=== PATIENT | female | born 1995 | race Caucasian/White ===

== ENCOUNTER 2018-04-26 16:04 | Emergency (ER) | payer OTHER ==
[2018-04-26 16:47] LABS: BASO # 0.1 10^3/uL (0.0-0.2); BASO % 0.5 % (0.0-1.0); EOS # 0.2 10^3/uL (0.0-0.50); EOS % 2.1 % (0.0-3.0); HEMATOCRIT 38.9 % (36.0-47.0); HEMOGLOBIN 12.9 g/dl (12.0-15.5); IMMATURE GRANULOCYTE % 0.3 % (0-3.0); MEAN CORPUSCULAR HEMOGLOBIN 27.9 pg (27.0-33.0); MEAN CORPUSCULAR HGB CONC 33.2 g/dl (32.0-36.5); MEAN CORPUSCULAR VOLUME 84.2 fl (80.0-96.0); MONO # 0.7 10^3/uL (0.0-0.8); MONO % 5.7 % (0.0-5.0); NEUTROPHILS # 7.5 10^3/uL (1.8-7.7); NEUTROPHILS % 65.4 % (36.0-66.0); PLATELET COUNT, AUTOMATED 364 10^3/uL (150-450); RED BLOOD COUNT 4.62 10^6/uL (4.00-5.40); RED CELL DISTRIBUTION WIDTH 12.7 % (11.5-14.5); WHITE BLOOD COUNT 11.5 10^3/uL (4.0-10.0)
[2018-04-26 17:12] LABS: HCG, SERUM QUANTITATIVE 7 MIU/ML
[2018-04-26 17:24] LABS: AMORPHOUS SEDIMENT RFX SMALL (NEGATIVE); KETONE, URINE AUTO RFX NEGATIVE (NEGATIVE); MUCUS, URINE RFX SMALL (NEGATIVE); NITRITE, URINE AUTO RFX NEGATIVE (NEGATIVE); RBC, URINE AUTO RFX TNTC /HPF (0-3); SPECIFIC GRAVITY UR AUTO RFX 1.016 (1.002-1.035); SQUAM EPITHELIAL CELL UR AURFX 1 /HPF (0-6); WBC, URINE AUTO RFX 7 /HPF (0-3)
[2018-04-26 17:26] LABS: LEUKOCYTE ESTERASE UR AUTO RFX TRACE (NEGATIVE)
== END 2018-04-26 19:40 | disposition home or self-care (01) ==
LOC: M ED 16:04
DX: O20.9 Hemorrhage in early pregnancy, unspecified (principal)

== ENCOUNTER 2018-04-27 04:16 | Emergency (ER) | payer OTHER ==
[2018-04-27] MEDS: NS 1,000 ML IV (05:45)
[2018-04-27 06:06] LABS: BASO # 0.1 10^3/uL (0.0-0.2); BASO % 0.8 % (0.0-1.0); EOS # 0.2 10^3/uL (0.0-0.50); EOS % 2.6 % (0.0-3.0); HEMATOCRIT 40.9 % (36.0-47.0); HEMOGLOBIN 13.5 g/dl (12.0-15.5); IMMATURE GRANULOCYTE % 0.3 % (0-3.0); LYMPH % 37.4 % (24.0-44.0); MEAN CORPUSCULAR HEMOGLOBIN 27.6 pg (27.0-33.0); MEAN CORPUSCULAR VOLUME 83.5 fl (80.0-96.0); MONO # 0.5 10^3/uL (0.0-0.8); MONO % 6.2 % (0.0-5.0); NEUTROPHILS # 4.2 10^3/uL (1.8-7.7); NEUTROPHILS % 52.7 % (36.0-66.0); PLATELET COUNT, AUTOMATED 366 10^3/uL (150-450); RED CELL DISTRIBUTION WIDTH 12.7 % (11.5-14.5)
[2018-04-27 06:27] LABS: HCG, SERUM QUANTITATIVE 5 MIU/ML
[2018-04-27 07:05] LABS: ALBUMIN 3.8 GM/DL (3.2-5.2); ALBUMIN/GLOBULIN RATIO 0.97 (1.00-1.93); ALKALINE PHOSPHATASE 82 U/L (45-117); ALT/SGPT 21 U/L (12-78); ANION GAP 7 MEQ/L (8-16); AST/SGOT 23 U/L (7-37); BILIRUBIN,DIRECT 0.2 MG/DL (0.0-0.2); BILIRUBIN,TOTAL 0.8 MG/DL (0.2-1.0); BLOOD UREA NITROGEN 11 MG/DL (7-18); CALCIUM LEVEL 8.7 MG/DL (8.5-10.1); CARBON DIOXIDE LEVEL 26 MEQ/L (21-32); CHLORIDE LEVEL 105 MEQ/L (98-107); CREATININE FOR GFR 0.59 MG/DL (0.55-1.30); GLOMERULAR FILTRATION RATE > 60.0 (>60); GLUCOSE, FASTING 83 MG/DL (70-100); LIPASE 49 U/L (73-393); POTASSIUM SERUM 4.3 MEQ/L (3.5-5.1); SODIUM LEVEL 138 MEQ/L (136-145); TOTAL PROTEIN 7.7 GM/DL (6.4-8.2)
== END 2018-04-27 06:50 | disposition home or self-care (01) ==
LOC: M ED 04:16
DX: Z32.01 Encounter for pregnancy test, result positive (principal); O20.9 Hemorrhage in early pregnancy, unspecified; Z3A.00 Weeks of gestation of pregnancy not specified
CPT/HCPCS: 83690

== ENCOUNTER 2018-05-17 15:00 | Emergency (ER) | payer OTHER ==
[2018-05-17 15:41] LABS: APPEARANCE, URINE CLOUDY (CLEAR); BACTERIA, URINE AUTO NEGATIVE (NEGATIVE); BILIRUBIN, URINE AUTO NEGATIVE (NEGATIVE); BLOOD, URINE BLOOD NEGATIVE (NEGATIVE); COLOR, URINE YELLOW (YELLOW); GLUCOSE, URINE (UA) AUTO NEGATIVE (NEGATIVE); KETONE, URINE AUTO NEGATIVE (NEGATIVE); LEUKOCYTE ESTERASE, URINE AUTO 1+ (NEGATIVE); MUCUS, URINE SMALL (NEGATIVE); NITRITE, URINE AUTO NEGATIVE (NEGATIVE); PROTEIN, URINE AUTO NEGATIVE (NEGATIVE); RBC, URINE AUTO 4 /HPF (0-3); SPECIFIC GRAVITY URINE AUTO 1.029 (1.002-1.035); SQUAMOUS EPITHELIAL CELL UR AU 9 /HPF (0-6); UROBILINOGEN, URINE AUTO 0.2 mg/dL (0.0-2.0); WBC, URINE AUTO 1 /HPF (0-3)
[2018-05-17] MEDS: NS 1,000 ML IV (15:41)
[2018-05-17 15:55] LABS: BASO # 0.1 10^3/uL (0.0-0.2); BASO % 0.7 % (0.0-1.0); EOS # 0.2 10^3/uL (0.0-0.50); EOS % 2.3 % (0.0-3.0); HEMOGLOBIN 12.2 g/dl (12.0-15.5); IMMATURE GRANULOCYTE % 0.2 % (0-3.0); LYMPH # 2.7 10^3/uL (1.5-6.5); LYMPH % 30.3 % (24.0-44.0); MEAN CORPUSCULAR HEMOGLOBIN 27.4 pg (27.0-33.0); MONO # 0.5 10^3/uL (0.0-0.8); MONO % 5.6 % (0.0-5.0); NEUTROPHILS # 5.3 10^3/uL (1.8-7.7); NEUTROPHILS % 60.9 % (36.0-66.0); PLATELET COUNT, AUTOMATED 357 10^3/uL (150-450); RED BLOOD COUNT 4.46 10^6/uL (4.00-5.40); RED CELL DISTRIBUTION WIDTH 12.7 % (11.5-14.5); WHITE BLOOD COUNT 8.8 10^3/uL (4.0-10.0)
[2018-05-17 16:20] LABS: ALBUMIN/GLOBULIN RATIO 1.03 (1.00-1.93); ALKALINE PHOSPHATASE 94 U/L (45-117); ALT/SGPT 19 U/L (12-78); ANION GAP 8 MEQ/L (8-16); AST/SGOT 13 U/L (7-37); BILIRUBIN,DIRECT 0.1 MG/DL (0.0-0.2); BILIRUBIN,TOTAL 0.4 MG/DL (0.2-1.0); BLOOD UREA NITROGEN 14 MG/DL (7-18); CALCIUM LEVEL 8.9 MG/DL (8.5-10.1); CARBON DIOXIDE LEVEL 27 MEQ/L (21-32); CHLORIDE LEVEL 103 MEQ/L (98-107); CREATININE FOR GFR 0.75 MG/DL (0.55-1.30); GLOMERULAR FILTRATION RATE > 60.0 (>60); GLUCOSE, FASTING 90 MG/DL (70-100); LIPASE 68 U/L (73-393); SODIUM LEVEL 138 MEQ/L (136-145); TOTAL PROTEIN 7.9 GM/DL (6.4-8.2)
[2018-05-17 16:24] LABS: CONTROL LINE HCG INT CTR LINE PRESENT; HCG, SERUM QUALITATIVE NEGATIVE (NEGATIVE)
== END 2018-05-17 17:00 | disposition home or self-care (01) ==
LOC: M ED 15:00
DX: R11.0 Nausea (principal); R19.7 Diarrhea, unspecified; F17.210 Nicotine dependence, cigarettes, uncomplicated
CPT/HCPCS: 83690

== ENCOUNTER 2020-02-06 02:30 | Emergency (ER) | payer OTHER ==
[~2020-02-06] VITALS: Ht 167.6 cm; Wt 128.7 kg
[~2020-02-06 02:30] MED LIST: MOTR200T44 PO; PRENTAB55 PO; ZOFR4TAB14 PO
[2020-02-06] MEDS ORDERED: VITA50TA43 PO (02:46)
[2020-02-06] MEDS ORDERED: MULTTAB20 PO (02:46)
[2020-02-06] MEDS ORDERED: UNIS25TA3 PO (02:46)
[2020-02-06] MEDS ORDERED: ACET-683 PO (02:46)
[2020-02-06] MEDS ORDERED: KETOROLAC 60MG 2ML VIAL IM ONE (05:15)
[2020-02-06 05:52] LABS: BASO # 0.1 10^3/uL (0.0-0.2); BASO % 0.5 % (0.0-1.0); EOS # 0.2 10^3/uL (0.0-0.5); HEMOGLOBIN 11.1 g/dl (12.0-15.5); LYMPH # 2.6 10^3/uL (1.5-5.0); LYMPH % 24.3 % (24.0-44.0); MEAN CORPUSCULAR HEMOGLOBIN 28.3 pg (27.0-33.0); MEAN CORPUSCULAR HGB CONC 33.6 g/dl (32.0-36.5); MEAN CORPUSCULAR VOLUME 84.2 fl (80.0-96.0); MONO # 0.7 10^3/uL (0.0-0.8); MONO % 6.2 % (0.0-5.0); NEUTROPHILS % 66.1 % (36.0-66.0); PLATELET COUNT, AUTOMATED 300 10^3/uL (150-450); RED BLOOD COUNT 3.92 10^6/uL (4.00-5.40); WHITE BLOOD COUNT 10.6 10^3/uL (4.0-10.0)
[2020-02-06 06:11] LABS: ALBUMIN 2.9 GM/DL (3.2-5.2); ALT/SGPT 21 U/L (12-78); BILIRUBIN,DIRECT 0.1 MG/DL (0.0-0.2); BILIRUBIN,TOTAL 0.3 MG/DL (0.2-1.0); BLOOD UREA NITROGEN 6 MG/DL (7-18); CALCIUM LEVEL 9.3 MG/DL (8.5-10.1); CARBON DIOXIDE LEVEL 26 MEQ/L (21-32); CHLORIDE LEVEL 106 MEQ/L (98-107); CREATININE FOR GFR 0.46 MG/DL (0.55-1.30); GLOMERULAR FILTRATION RATE > 60.0 (>60); GLUCOSE, FASTING 92 MG/DL (70-100); POTASSIUM SERUM 4.1 MEQ/L (3.5-5.1); SODIUM LEVEL 137 MEQ/L (136-145); TOTAL PROTEIN 6.7 GM/DL (6.4-8.2)
[2020-02-06 06:17] LABS: ERYTHROCYTE SEDIMENTATION RATE 23 mm/hr (0-20)
[2020-02-06 07:00] VITALS: BP 125/74
== END 2020-02-06 07:02 | disposition home or self-care (01) ==
LOC: M ED 02:30
DX: O99.352 Diseases of the nervous system complicating pregnancy, second trimester (principal); G43.909 Migraine, unspecified, not intractable, without status migrainosus; Z3A.16 16 weeks gestation of pregnancy; Z79.899 Other long term (current) drug therapy; Z87.891 Personal history of nicotine dependence
CPT/HCPCS: 80048; 80076; 85025; 85652; 96372; 99283; J1885

== ENCOUNTER 2020-07-12 07:14 | Inpatient (IN) | payer OTHER ==
[~2020-07-12] VITALS: Ht 167.6 cm; Wt 147.9 kg
[2020-07-12] VITALS (42 sets, daily range): BP systolic 95–145; BP diastolic 55–94
[~2020-07-12 07:14] MED LIST changes: +ACET-683 PO; +MULTTAB20 PO; +UNIS25TA3 PO; +VITA50TA43 PO
--- OUTSIDE RECORDS SUMMARY | 2020-07-12 07:18 | CCD ---
Author Author [facility] Organization [facility] Address Unknown Phone Unavailable Care Team Providers Care Pl Sql Developer Name Role Phone ALIASES , DEFAULT / GENERIC / UNKNOWN PROVIDER * Unavailable Unavailable ALIASES , DEFAULT / GENERIC / UNKNOWN PROVIDER * Unavailable Unavailable ALIASES , DEFAULT / GENERIC / UNKNOWN PROVIDER * Unavailable Unavailable ALIASES , DEFAULT / GENERIC / UNKNOWN PROVIDER * Unavailable Unavailable ALIASES , DEFAULT / GENERIC / UNKNOWN PROVIDER * Unavailable Unavailable ALIASES , DEFAULT / GENERIC / UNKNOWN PROVIDER * Unavailable Unavailable ALIASES , DEFAULT / GENERIC / UNKNOWN PROVIDER * Unavailable Unavailable ALIASES , DEFAULT / GENERIC / UNKNOWN PROVIDER * Unavailable Unavailable ALIASES , DEFAULT / GENERIC / UNKNOWN PROVIDER * Unavailable Unavailable ALIASES , DEFAULT / GENERIC / UNKNOWN PROVIDER * Unavailable Unavailable ALIASES , DEFAULT / GENERIC / UNKNOWN PROVIDER * Unavailable Unavailable ALIASES , DEFAULT / GENERIC / UNKNOWN PROVIDER * Unavailable Unavailable ALIASES , DEFAULT / GENERIC / UNKNOWN PROVIDER * Unavailable Unavailable ALIASES , DEFAULT / GENERIC / UNKNOWN PROVIDER * Unavailable Unavailable ALIASES , DEFAULT / GENERIC / UNKNOWN PROVIDER * Unavailable Unavailable ALIASES , DEFAULT / GENERIC / UNKNOWN PROVIDER * Unavailable Unavailable ALIASES , DEFAULT / GENERIC / UNKNOWN PROVIDER * Unavailable Unavailable ALIASES , DEFAULT / GENERIC / UNKNOWN PROVIDER * Unavailable Unavailable ALIASES , DEFAULT / GENERIC / UNKNOWN PROVIDER * Unavailable Unavailable ALIASES , DEFAULT / GENERIC / UNKNOWN PROVIDER * Unavailable Unavailable ALIASES , DEFAULT / GENERIC / UNKNOWN PROVIDER * Unavailable Unavailable ALIASES , DEFAULT / GENERIC / UNKNOWN PROVIDER * Unavailable Unavailable ALIASES , DEFAULT / GENERIC / UNKNOWN PROVIDER * Unavailable Unavailable ALIASES , DEFAULT / GENERIC / UNKNOWN PROVIDER * Unavailable Unavailable ALIASES , DEFAULT / GENERIC / UNKNOWN PROVIDER * Unavailable Unavailable ALIASES , DEFAULT / GENERIC / UNKNOWN PROVIDER * Unavailable Unavailable ALIASES , DEFAULT / GENERIC / UNKNOWN PROVIDER * Unavailable Unavailable ALIASES , DEFAULT / GENERIC / UNKNOWN PROVIDER * Unavailable Unavailable ALIASES , DEFAULT / GENERIC / UNKNOWN PROVIDER * Unavailable Unavailable ALIASES , DEFAULT / GENERIC / UNKNOWN PROVIDER * Unavailable Unavailable ALIASES , DEFAULT / GENERIC / UNKNOWN PROVIDER * Unavailable Unavailable ALIASES , DEFAULT / GENERIC / UNKNOWN PROVIDER * Unavailable Unavailable ALIASES , DEFAULT / GENERIC / UNKNOWN PROVIDER * Unavailable Unavailable ALIASES , DEFAULT / GENERIC / UNKNOWN PROVIDER * Unavailable Unavailable ALIASES , DEFAULT / GENERIC / UNKNOWN PROVIDER * Unavailable Unavailable ALIASES , DEFAULT / GENERIC / UNKNOWN PROVIDER * Unavailable Unavailable ALIASES , DEFAULT / GENERIC / UNKNOWN PROVIDER * Unavailable Unavailable ALIASES , DEFAULT / GENERIC / UNKNOWN PROVIDER * Unavailable Unavailable ALIASES , DEFAULT / GENERIC / UNKNOWN PROVIDER * Unavailable Unavailable ALIASES , DEFAULT / GENERIC / UNKNOWN PROVIDER * Unavailable Unavailable ALIASES , DEFAULT / GENERIC / UNKNOWN PROVIDER * Unavailable Unavailable ALIASES , DEFAULT / GENERIC / UNKNOWN PROVIDER * Unavailable Unavailable ALIASES , DEFAULT / GENERIC / UNKNOWN PROVIDER * Unavailable Unavailable ALIASES , DEFAULT / GENERIC / UNKNOWN PROVIDER * Unavailable Unavailable ALIASES , DEFAULT / GENERIC / UNKNOWN PROVIDER * Unavailable Unavailable ALIASES , DEFAULT / GENERIC / UNKNOWN PROVIDER * Unavailable Unavailable ALIASES , DEFAULT / GENERIC / UNKNOWN PROVIDER * Unavailable Unavailable LATIA JOY Unavailable Unavailable NOSOVITCH JR, Ferny DAO MD Unavailable Unavailable NOSOVITCH JR, Ferny DAO MD Unavailable Unavailable NOSOVITCH JR, Ferny DAO MD Unavailable Unavailable NOSOVITCH JR, Ferny DAO MD Unavailable Unavailable NOSOVITCH JR, Ferny DAO MD Unavailable Unavailable NOSOVITCH JR, Ferny DAO MD Unavailable Unavailable NOSOVITCH JR, Ferny DAO MD Unavailable Unavailable NOSOVITCH JRFerny MD Unavailable Unavailable NOSOVITCH JRFerny MD Unavailable Unavailable NOSOVITCH JRFerny MD Unavailable Unavailable NOSOVITCH JRFerny MD Unavailable Unavailable NOSOVITCH JR, Ferny DAO MD Unavailable Unavailable NOSOVITCH JRFerny MD Unavailable Unavailable NOSOVITCH JRFerny MD Unavailable Unavailable NOSOVITCH JRFerny MD Unavailable Unavailable NOSOVITCH JRFerny MD Unavailable Unavailable NOSOVITCH JRFerny MD Unavailable Unavailable NOSOVITCH JRFerny MD Unavailable Unavailable NOSOVITCH JR, Ferny DAO MD Unavailable Unavailable NOSOVITCH JR, Ferny DAO MD Unavailable Unavailable NOSOVITCH JRFerny MD Unavailable Unavailable NOSOVITCH JRFerny MD Unavailable Unavailable NOSOVITCH JRFerny MD Unavailable Unavailable NOSOVITCH JRFerny MD Unavailable Unavailable NOSOVITCH JRFerny MD Unavailable Unavailable NOSOVITCH JRFerny MD Unavailable Unavailable Ferny HARP JR, MD Unavailable Unavailable Ferny HARP JR, MD Unavailable Unavailable Sonya WALLACE Unavailable Unavailable Re-disclosure Warning The records that you are about to access may contain information from federally-assisted alcohol or drug abuse programs. If such information is present, then the following federally mandated warning applies: This information has been disclosed to you from records protected by federal confidentiality rules (42 CFR part 2). The federal rules prohibit you from making any further disclosure of this information unless further disclosure is expressly permitted by the written consent of the person to whom it pertains or as otherwise permitted by 42 CFR part 2. A general authorization for the release of medical or other information is NOT sufficient for this purpose. The Federal rules restrict any use of the information to criminally investigate or prosecute any alcohol or drug abuse patient.The records that you are about to access may contain highly sensitive health information, the redisclosure of which is protected by Article 27-F of the [facility] Public Health law. If you continue you may have access to information: Regarding HIV / AIDS; Provided by facilities licensed or operated by the [facility] Office of Mental Health; or Provided by the [facility] Office for People With Developmental Disabilities. If such information is present, then the following [facility] mandated warning applies: This information has been disclosed to you from confidential records which are protected by state law. State law prohibits you from making any further disclosure of this information without the specific written consent of the person to whom it pertains, or as otherwise permitted by law. Any unauthorized further disclosure in violation of state law may result in a fine or assisted sentence or both. A general authorization for the release of medical or other information is NOT sufficient authorization for further disc losure. Allergies and Adverse Reactions Type Description Substance Reaction Status Data Source(s ) Drug Class NO KNOWN ALLERGIES NO KNOWN ALLERGIES [facility] Encounters Encounter Providers Location Date Indications Data Source(s ) Outpatient Attender: DEFAULT / GENE DARRICK / UNKNOWN PROVIDER ALIASES Attender: SYLWIA HARP JRReferrer: DAVID WALLACE [id number] 12:00:00 AM EDT - 03/23/2020 03:54:33 PM EDT Obesity complicating , unspecified trimester [facility] Obesity complicating , unspecif ied trimester Outpatient Attender: LATIA JOYReferrer: DAVID Crane 03/23/2020 12:00:00 AM [facility] Outpatient 03/21/2020 12:00:00 AM [facility] Outpatient 03/21/2020 12:00:00 AM [facility] Insurance Providers Payer name Policy type / Coverage type Policy ID Covered green party ID Covered green party's relationship to funk Policy Funk Plan Information [employer] [id number] [facility] [id number] U [id number] Self [id number] SELF PAY O UNAVAILABLE S UNAVAILA BLE [employer] [facility] O [id number] S [id number] Problems, Conditions, and Diagnoses Code Display Name Description Problem Type Effective Dates Data Source(s) O99.210 Obesity complicating , unspecif ied trimester Obesity complicating , unspecified trimester Diagnosis 03/23/20 01:01:56 PM [facility] Results ID Date Data Source [id number] 03/24/2020 06:47:45 PM [facility] Name Value Range Interpretation Code Description Data Josseline rce(s) Supporting Document(s) Progress Note [facility] [id number] [facility] [file] [id number] ID Date Data Source [id number] 03/23/2020 02:23:[address] [facility] Name Value Range Interpretation Code Description Data Josseline rce(s) Supporting Document(s) Color of Urine [facility] Clarity of Urine [facility] Glucose [Mass/volume] in Urine by Test strip Negative [facility] Bilirubin.total [Presence] in Urine by Test strip Negative [facility] Ketones [Mass/volume] in Urine by Test strip 15 mg/dL Negative A [facility] Specific gravity of Urine by Test strip 1.025 1.005-1.025 [facility] Hemoglobin [Presence] in Urine by Test strip [facility] pH of Urine by Test strip 5.5 5.0-8.0 [facility] Protein [Mass/volume] in Urine by Test strip Negative [facility] Urobilinogen [Units/volume] in Urine by Test strip 0.2 {Ehrlich_U}/ dL 0.2-1.0 [facility] Nitrite [Presence] in Urine by Test strip Negative [facility] Leukocyte esterase [Presence] in Urine by Test strip Negat clement A [facility] Procedure Vital Signs ID Date Data Source [id number] 03/24/2020 06:47:[address] [facility] Name Value Range Interpretation Code Description Data Source(s) Body height Measured 67 in 67 in [facility] WEIGHT RECORDED 290 lb 290 lb [facility]
[2020-07-12] MEDS ORDERED: LACTATED RINGER'S 1000 ML IV STA (07:32)
[2020-07-12] MEDS ORDERED: TUMS500C PO (07:39)
[2020-07-12] MEDS ORDERED: miSOPROStol 25MCG 1/4 TABLET PV ONE (08:00)
[2020-07-12] MEDS ORDERED: OXYTOCIN DRIP 30 UNITS in IV 1 EA IV SCH (08:15)
--- NOTE | 2020-07-12 08:25 | HPEPDOC ---
Obstetrical History & Physical General Date of Admission Jul 12, 2020 at 07:14 History of Present Illness 24 yo @ 39+0 by LMP who is admitted for induction of labor for polyhydro mnios. patient is also morbidily obese. She reports contractions, denies any VB or LOF. She has no acute concerns. Care Care: Good Care Dating Final EDC: Jul 19, 2020 Final EDC by: LMP LMP: October 13, 2019 EGA at Admission: 39 Antepartum Course Diagnos(e)s 1. Polyhydromnios 2. MORBID OBESISITY-prepregancy BMI >55 3. Excessive weight gain in ,#63 Height (inches): 66 Pre- weight (lbs.): 255 Admission Weight (lbs.): 318 Change in Weight (lbs.): 63 Past Medical History Past Obstetrical History : Past Obstetrical History: Multigravida Type of Delivery: Spontaneous Vaginal Del. 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 Past Medical History Medical History Obesity Surgical History: Other (open appendectomy) Family History Significant Family History: No pertinent family hx Social History Marital Status: Family situation: Spouse/partner home Psychosocial History: No pertinent psych hx * Smoker: non-smoker Alcohol: Denies Abuse Violence Screening Have you been hit/kicked/slapp: No Have you been sexually assault: No Imunizations Tdap status: current Influenza Status: needs Allergies Coded Allergies: No Known Allergies (Unverified , 04/26/18) Medications Scheduled No122/Iron/Folic Acid ( Multi Tablet) 1 Each Tablet, 1 TAB PO DAILY Miscellaneous Medications Calcium Carbonate (Tums) 200 Mg Tab.chew, 500 MG PO Physical Examination Physical Examination GENERAL: Alert and oriented times three. BREAST: . ABDOMEN: Gravid and non-tender to touch. FETUS: Is vertex (VTX) by sterile vaginal examination and TAUS. HEART RATE: Regular rate and rhythm. LUNGS: Clear to auscultation (CTA). EXTREMITIES: No edema. No clonus. SVE: 3/75/-2 Laboratory Data [facility]H [facility] Laboratory Tests 2 07/12/20 07:33: Serology Scanned Report Hepatitis B Testing Pertinent Laboratoy Data Blood Type: O+ RBC Antibody Screen: Negative HIV: Negative Hepatitis B: Negative Hepatitis C: Unknown Rapid Plasma Reagin: Nonreactive Rubella: Immune Varicella: Immune Chlamydia/Gonorrhea: Negative Group B Streptococcus: Negative Quad Screen Test: Negative Cystic Fibrosis: Unknown Glucose Tolerance Test: 102 Anatomy Ultrasound Placenta Location: Fundal Normal Anatomy: Yes Steroid Therapy Steroid Therapy: No Vaginal Examination Dilation: 3 cm Effacement: 70% Station: -2 Cervical Consistency: Medium Cervical Position: Middle Presentation: Cephalic presentation Assessment Heart Rate (FHR): 140 Variability: Moderate Accelerations: Positive Decelerations: None Tocometer Contractions: Yes Frequency: regular Strength: palpated as moderate Multi-drug resistant Organism: No history of MDRO Assessment/Plan Assessment 24 yo @ 39+0 by LMP who is admitted for induction of labor for polyhydromnios. patient is also morbidily obese. She reports contractions, denie s any VB or LOF. She has no acute concerns. pp to 7lb2oz. CAT I Tracing. SVE 3/75/-2, RH POS, GBS NEG 1. Polyhydromnios 2. MORBID OBESISITY-prepregancy BMI >55 3. Excessive weight gain in ,#63 Plan Admit and orient. Band Salvager and consent. Diet: CLEAR. Group B Streptococcus (GBS) negative Labs and intravenous (IV) per unit protocol. Counseled on Pitocin and induction of labor (IOL). Lactated Ringers (LR): Bolus 1000 mL, then at 125 mL/hr. Anticipate [normal spontaneous delivery ()]. C-S as appropriate. BRIJESH ARCE MD Jul 12, 2020 08:25
[2020-07-12] MEDS: LR 1,000 ML IV SCH ×2 (08:50→16:48)
[2020-07-12 09:30] LABS: HEMATOCRIT 40.7 % (36.0-47.0); HEMOGLOBIN 13.4 g/dl (12.0-15.5); MEAN CORPUSCULAR HEMOGLOBIN 27.5 pg (27.0-33.0); MEAN CORPUSCULAR HGB CONC 32.9 g/dl (32.0-36.5); MEAN CORPUSCULAR VOLUME 83.6 fl (80.0-96.0); PLATELET COUNT, AUTOMATED 300 10^3/uL (150-450); RED BLOOD COUNT 4.87 10^6/uL (4.00-5.40); WHITE BLOOD COUNT 10.1 10^3/uL (4.0-10.0)
--- NOTE | 2020-07-12 14:11 | IPNPDOC ---
Obstetrical Progress Note Date of Service Jul 12, 2020 Subjective to room for assessment. patient is starting to feel contractions some more and is thinking about the epidural. FHT: 140, Mod jhoan,+accels, -decels--Cat I Tracing SVE: /-2 [place]: 3-09/09, pit at 12 A/P latent labor. cat I tracing. continue IOL with pitocin. anticipate . Objective Vital Signs Date Time Temp Pulse Resp B/P (MAP) Pulse Ox O2 Delivery O2 Flow Rate FiO2 07/12/20 12:32 93 18 131/78 (95) 07/12/20 07:44 98.1 97 Room Air BRIJESH ARCE MD Jul 12, 2020 14:10
[2020-07-12] MEDS ORDERED: FENTANYL 2MCG/ML ROPIVACAINE 0.2% IN 0.9% NACL 100ML IVBAG As Ordered ONE (14:53)
[2020-07-12] MEDS ORDERED: EPIDURAL COMMENT XX SCH (15:15)
[2020-07-12] MEDS ORDERED: NALOXONE INJ 0.4MG/1ML VIAL (J2310 PER 1MG) IV PRN (15:15)
[2020-07-12] MEDS ORDERED: ROPIVACAINE HCL IVBAG 200 ML EPIDURAL SCH (15:15)
[2020-07-12] MEDS ORDERED: REFRIGERATOR IV KEYS XX PRN (15:15)
[2020-07-12] MEDS ORDERED: ONDANSETRON 4MG/2ML VIAL IV PRN (15:15)
[2020-07-12] MEDS ORDERED: EPIDURAL/PCA KEYS XX PRN (15:15)
[2020-07-12] MEDS ORDERED: diphenhydrAMINE 50MG/ML VIAL (J1200) IV PRN (15:15)
[2020-07-12] MEDS ORDERED: FENTANYL/ROPIVACAINE/NACL BAG 100 ML EPIDURAL SCH (15:30)
[2020-07-12] MEDS: LACTATED RINGER'S 1000 ML IV PRN ×2 (16:48→17:26)
[2020-07-12] MEDS: ePHEDrine SULFATE 25 MG/5 ML(5MG/ML) SYRINGE IV PRN ×3 (16:48→16:58)
--- NOTE | 2020-07-12 20:14 | IPNPDOC ---
Obstetrical Progress Note Date of Service Jul 12, 2020 Subjective to room for assessment. patient comfortable in bed with epidural. pitocin now at 20 FHT: 140, Mod jhoan,+accels, -decels---Cat I tracomg SVE: /-1, AROM WITH LIGHT MEC STAINED FLUIDS [place]: -10/09, pit at 20, halved after AROM A/P Continues to be in latent labor. Arom with mec stained fluids. cat I tracing. pit halved. continue increased pitocin per L&D protocol -Anticipate . Objective Vital Signs Date Time Temp Pulse Resp B/P (MAP) Pulse Ox O2 Delivery O2 Flow Rate FiO2 07/12/20 18:29 97.0 125 18 112/61 (78) 07/12/20 07:44 97 Room Air BRIJESH ARCE MD Jul 12, 2020 20:14
[2020-07-13] VITALS (8 sets, daily range): BP systolic 108–137; BP diastolic 56–79
[2020-07-13 00:25] LABS: CORD GAS ABE V -6.9; CORD GAS HCO3 V 21.7 MEQ/L; CORD GAS O2 SAT V 65.9 %; CORD GAS PCO2 V 55.6 mmHg; CORD GAS PH V 7.209 UNITS; CORD GAS PO2 V 33.4 mmHg; CORD GAS SBC V 18.2 MEQ/L; CORD GAS TCO2 V 23.4 MEQ/L
[2020-07-13 00:26] LABS: CORD GAS ABE A -9.8; CORD GAS HCO3 A 21.7 MEQ/L; CORD GAS O2 SAT A 39.1 %; CORD GAS PCO2 A 73.7 mmHg; CORD GAS PH A 7.087 UNITS; CORD GAS SBC A 15.6 MEQ/L
[2020-07-13] MEDS ORDERED: MOM 30ML SUSPENSION UDC PO PRN (00:30)
[2020-07-13] MEDS ORDERED: DOCUSATE SODIUM 100MG CAPSULE PO PRN (00:30)
[2020-07-13] MEDS ORDERED: BENZOCAINE 20% HEMORRHOIDAL OINTMENT 28GM TUBE TOP PRN (00:30)
[2020-07-13] MEDS ORDERED: ANUSOL HC CREAM 30GM TOP PRN (00:30)
[2020-07-13] MEDS ORDERED: RHOGAM 300 MCG (1500 IU) INJ (J2790) IM SCH (00:30)
[2020-07-13] MEDS ORDERED: OXYTOCIN DRIP 30 UNITS in IV 1 EA IV SCH (00:30)
--- NOTE | 2020-07-13 00:45 | DNPDOC ---
[facility] Delivery Note Delivery Note DATE OF DELIVERY: 07/13/2020 PREDELIVERY DIAGNOSIS: 39-1/7 weeks' gestation and labor, polyhydromnios, morbid obesity, BMI 55 POST DELIVERY DIAGNOSIS: Delivered. PROCEDURE: [Spontaneous vaginal delivery/ section]. OIL AND GAS LEASE PUMPER: Dr. Brijesh Arce ANESTHESIA: Epidural. ESTIMATED BLOOD LOSS: 100 mL. FINDINGS: 8 pound 15 ounce ( 4040g) male , Score 9/9, no nuchal cord. DELIVERY SUMMARY: Patient is a 24 -year-old 2 now para 2001 who was admitted to labor and delivery for induction of labor for Polyhydromnios. Patient progressed to C/C/+2 and with good maternal effort delivered a viable male infant. The infants head delivered OA. After delivery of the head, the presence for a possible nuchal cord was assessed and the head was allowed to spontaneously restitute TATIANA. No nuchal cord upon delivery of the head. Right anterior shoulder delivered with gentle downward traction followed by posterior shoulder and corpus without difficulty. Normal 3-vessel cord clamped x 2 and cut after 1 min of delayed cord clamping. Infant mouth and nares bulb suctioned. Spontaneous cry noted. placed on maternal abdomen for [id number]. Cord blood obtained. Placenta delivered spontaneously and inspection of the placenta demonstrated that it was intact. The cord insertion appeared normal. The uterus was cleared of all clots and debris. Fundal massage until firm. 30 units of Pitocin administered per protocol and the patient required no additional uterotonics. Inspection of cervix, perineum, and vaginal wall revealed 1st degree laceralation that was repaired in the usual fashio with good hemostasis obtained. Repeat uterine examination noted uterine tone to be adequate and firm. Mom and infant stayed in L&D in hemodynamic stable condition my departure. Sponge, lap and needle count correct x 2. BRIJESH ARCE MD Jul 13, 2020 00:44
[2020-07-13] MEDS: ACETAMINOPHEN 500 MG TAB PO PRN ×2 (03:18→11:22)
[2020-07-13] MEDS: IBUPROFEN 800 MG TAB PO PRN ×3 (03:31→19:51)
[2020-07-13] MEDS: PRENATAL VITAMINS CHEWABLE TABLET PO SCH (08:17)
[2020-07-13] MEDS: FERROUS SULFATE 325MG TAB PO SCH (08:17)
[2020-07-14] MEDS: IBUPROFEN 800 MG TAB PO PRN (05:27)
[2020-07-14 05:34] VITALS: BP 112/66
[2020-07-14] MEDS ORDERED: IBUP80TA PO (05:47)
[2020-07-14] MEDS ORDERED: ACET-683 PO (05:47)
--- NOTE | 2020-07-14 05:49 | DS.PDOC ---
Discharge Summary General Date of Admission Jul 12, 2020 at 07:14 Date of Discharge Jul 14, 2020 Discharge Summary HOSPITAL COURSE: Ms. 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 Her course was unremarkable. On her day of discharge she met all appropriate discharge criteria. She was ambulating, voiding, tolerating a regular diet, and had minimal lochia. DISCHARGE MEDICATIONS: Please see below. ALLERGIES: Please see below. PHYSICAL EXAMINATION ON DISCHARGE: VITAL SIGNS: Please see below. GENERAL: AAOX3, NAD ABDOMINAL EXAMINATION: Fundus firm at U-2. No fundal tenderness EXTREMITIES: No edema PSYCHIATRIC EXAMINATION: Affect appropriate LABORATORY DATA: Please see below. ACTIVITY: Pelvic rest for 6 weeks DIET: Regular DISCHARGE PLAN: Discharge home DISPOSITION: Discharge home on 14Jul2020. DISCHARGE INSTRUCTIONS: 1. Nothing in the vagina for 6 weeks ITEMS TO FOLLOWUP ON ON OUTPATIENT: 1. Call to schedule a visit for 6 weeks post delivery DISCHARGE CONDITION: Stable. TIME SPENT ON DISCHARGE: Greater than 20 minutes. Davis Deras DO Vital Signs/I&Os Vital Signs Date Time Temp Pulse Resp B/P (MAP) Pulse Ox O2 Delivery O2 Flow Rate FiO2 07/14/20 05:34 97.7 106 20 112/66 (81) 07/13/20 06:00 100 Room Air Discharge Medications Scheduled No122/Iron/Folic Acid ( Multi Tablet) 1 Each Tablet, 1 TAB PO DAILY, (Reported) Scheduled PRN Acetaminophen (Acetaminophen) 500 Mg Tablet, 1,000 MG PO Q6HP PRN for PAIN LEVEL 6-10 Ibuprofen (Ibuprofen) 800 Mg Tablet, 800 MG PO Q8HP PRN for PAIN LEVEL 6-10 Miscellaneous Medications Calcium Carbonate (Tums) 200 Mg Tab.chew, 500 MG PO, (Reported) Allergies Coded Allergies: No Known Allergies (Unverified , 04/26/18) DAVIS DERAS DO Jul 14, 2020 05:49
[2020-07-14] MEDS ORDERED: CYCLOBENZAPRINE 10MG TABLET PO PRN (06:00)
[2020-07-14] MEDS: PRENATAL VITAMINS CHEWABLE TABLET PO SCH (08:17)
[2020-07-14] MEDS: FERROUS SULFATE 325MG TAB PO SCH (08:17)
[2020-07-14] MEDS: ACETAMINOPHEN 500 MG TAB PO PRN (08:18)
== END 2020-07-14 18:10 | disposition home or self-care (01) | DRG 807 ==
LOC: M LDI 07:14 → M OBS 07-13 02:45
PROVIDERS: ADMIT Obstetrics & Gynecology; ATTEND Obstetrics & Gynecology
PROC: 3E0P7GC Introduction of Other Therapeutic Substance into Female Reproductive, Via Natural or Artificial Opening (ICD-10-PCS; 2020-07-12)
PROC: 10907ZC Drainage of Amniotic Fluid, Therapeutic from Products of Conception, Via Natural or Artificial Opening (ICD-10-PCS; 2020-07-12)
PROC: 10E0XZZ Delivery of Products of Conception, External Approach (ICD-10-PCS; principal; 2020-07-13)
PROC: 0HQ9XZZ Repair Perineum Skin, External Approach (ICD-10-PCS; 2020-07-13)
DX: O40.3XX0 Polyhydramnios, third trimester, not applicable or unspecified (principal); Z37.0 Single live birth; Z3A.39 39 weeks gestation of pregnancy; O99.214 Obesity complicating childbirth; E66.9 Obesity, unspecified; O77.0 Labor and delivery complicated by meconium in amniotic fluid; O70.0 First degree perineal laceration during delivery